=== PATIENT | female | born 1945 | race Caucasian/White ===

== ENCOUNTER 2023-09-02 10:16 | Day surgery (SDC) | payer MEDICARE ==
[2023-08-29 16:59] LABS: BASOPHILS % (AUTO) 0.4 % (0-1); EOSINOPHILS # (AUTO) 0.1 X10'3 (0-0.9); EOSINOPHILS % (AUTO) 1.4 % (0-6); HEMATOCRIT 37.8 % (35.0-45.0); HEMOGLOBIN 12.3 g/dl (12.0-16.0); LYMPHOCYTES # (AUTO) 0.9 X10'3 (1.1-4.8); LYMPHOCYTES % (AUTO) 10.1 % (21-51); MEAN CORPUSCULAR HGB CONC 32.7 g/dL (33.0-36.5); MEAN PLATELET VOLUME 7.3 FL (7.4-10.4); MONOCYTES # (AUTO) 0.6 X10'3 (0-0.9); MONOCYTES % (AUTO) 6.6 % (2-12); NEUTROPHILS # (AUTO) 7.2 X10'3 (1.8-7.7); NEUTROPHILS % (AUTO) 81.5 % (42-75); PLATELET COUNT 232 X10'3 (140-440); RED BLOOD COUNT 4.11 X10'6 (4.20-5.60); RED CELL DISTRIBUTION WIDTH 14.4 % (11.5-14.5); WHITE BLOOD COUNT 8.9 X10'3 (4.5-11.0)
[2023-08-29 17:08] LABS: APTT 27 SECONDS (22-32); PROTHROMBIN TIME 10.8 SECONDS (9.0-12.0)
[2023-08-29 17:12] LABS: ALBUMIN 3.6 G/DL (3.4-5.0); ANION GAP 8 (8-16); BLOOD UREA NITROGEN 12 MG/DL (7-18); BUN/CREATININE RATIO 16.2 (10.0-20.0); CALCIUM 8.5 MG/DL (8.5-10.1); CHLORIDE 106 MMOL/L (99-107); CHOL/HDL RATIO 2.6 (0.00-4.99); CHOLESTEROL 172 MG/DL (0-200); CREATININE 0.74 MG/DL (0.40-0.90); GLUCOSE 84 MG/DL (70-104); HDL CHOLESTEROL 65 MG/DL (35-60); LDL CHOLESTEROL 82 MG/DL (50-100); POTASSIUM 4.3 MMOL/L (3.5-5.1); SODIUM 141 MMOL/L (135-145); TRIGLYCERIDES 76 MG/DL (20-135); eGFR 76 ML/MIN
[~2023-09-02] VITALS: Ht 170.2 cm; Wt 71.1 kg
[2023-09-02] VITALS (11 sets, daily range): BP systolic 97–123; BP diastolic 40–77; PULSE 66–141; RESP 10–18; TEMP 97.7; O2SAT 92–97
[2023-09-02] MEDS ORDERED: TRAM50TA2 PO (10:43)
[2023-09-02] MEDS ORDERED: AMLO2.5T5 PO (10:43)
[2023-09-02] MEDS ORDERED: ROSU5TAB12 PO (10:43)
[2023-09-02] MEDS ORDERED: SILD20TA2 PO (10:43)
[2023-09-02] MEDS ORDERED: CHOL20002 PO (10:43)
[2023-09-02] MEDS ORDERED: MYCO500T5 PO (10:43)
[2023-09-02] MEDS ORDERED: PRE1T PO (10:43)
[2023-09-02] MEDS ORDERED: ESCI-8 PO (10:43)
[2023-09-02] MEDS ORDERED: GABA300T28 (10:43)
[2023-09-02] MEDS ORDERED: PANT20TA18 PO (10:43)
[2023-09-02] MEDS: normal saline 1,000 ML IV SCH (11:00)
[2023-09-02] MEDS ORDERED: verapamil 2.5 mg/ml inj IV ONE (11:22)
[2023-09-02] MEDS ORDERED: nitroGLYCERIN 500mcg/5mL D5W 5 ML IV ONE (11:23)
[2023-09-02] MEDS ORDERED: iohexol 350MG/ML 100ml bottle IV ONE (11:23)
[2023-09-02] MEDS ORDERED: fentaNYL/PF 50MCG/1 ML 2ML syringe ONE (11:23)
[2023-09-02] MEDS ORDERED: midazolam 1 mg/ML 2ml injection ONE (11:23)
[2023-09-02] MEDS ORDERED: heparin 1,000unit/ml 10ml vial 10 ML ONE (11:23)
[2023-09-02] MEDS ORDERED: LIDOcaine 1% (10mg/ml) 2ml vial ONE (11:53)
[2023-09-02] MEDS: LORazepam 0.5 MG tablet PO PRN (13:03)
[2023-09-02] MEDS: diphenhydrAMINE 25mg capsule PO PRN (13:03)
[2023-09-02] MEDS ORDERED: HYDROcodone/acetaminophen 5mg/325mg tablet PO PRN (13:30)
[2023-09-02] MEDS ORDERED: HYDROcodone/acetaminophen 10/325mg tab PO PRN (13:30)
[2023-09-03 06:26] LABS: ISTAT HGB MIX 11.6 g/dl (12.0-16.0); ISTAT Hct MIX 34 %PCV (35-45); ISTAT O2 SATURATION MIX VENOUS 65 % (60-80); ISTAT O2 SATURATION MIX VENOUS 90 % (60-80); ISTAT SOURCE BLNK
== END 2023-09-02 17:22 | disposition home or self-care (01) ==
LOC: SSTAY O 10:16
PROVIDERS: ATTEND Student in an Organized Health Care Education/Training Program
DX: I08.0 Rheumatic disorders of both mitral and aortic valves (principal); E78.5 Hyperlipidemia, unspecified; D64.9 Anemia, unspecified; I10 Essential (primary) hypertension; I73.00 Raynaud's syndrome without gangrene; K21.9 Gastro-esophageal reflux disease without esophagitis; Z87.01 Personal history of pneumonia (recurrent); Z79.899 Other long term (current) drug therapy; Z79.01 Long term (current) use of anticoagulants
CPT/HCPCS: 36415; 76937; 80048; 80061; 85025; 85610; 85730; 93005; 93456; 99152; J1644; J2250; J3010; J3490; J7030; Q9967; 82803; 85014; A6258; A6402; C1751; C1769; C1894

== ENCOUNTER 2023-11-11 10:31 | Outpatient (CLI) | payer MEDICARE ==
[~2023-11-11 10:31] MED LIST: AMLO2.5T5 PO; CHOL20002 PO; ESCI-8 PO; GABA300T28 PO; MYCO500T5 PO; PANT20TA18 PO; PRE1T PO; ROSU5TAB12 PO; SILD20TA14 PO; TRAM50TA2 PO
[2023-11-11 11:12] LABS: APTT 29 SECONDS (22-32); PROTHROMBIN TIME 10.9 SECONDS (9.0-12.0)
[2023-11-11 11:15] LABS: BASOPHILS % (AUTO) 0.2 % (0-1); EOSINOPHILS # (AUTO) 0.1 X10'3 (0-0.9); EOSINOPHILS % (AUTO) 1.2 % (0-6); HEMATOCRIT 35.8 % (35.0-45.0); HEMOGLOBIN 11.6 g/dl (12.0-16.0); LYMPHOCYTES # (AUTO) 0.7 X10'3 (1.1-4.8); LYMPHOCYTES % (AUTO) 6.1 % (21-51); MEAN CORPUSCULAR HEMOGLOBIN 29.6 PG (27.0-31.0); MEAN CORPUSCULAR HGB CONC 32.6 g/dL (33.0-36.5); MEAN CORPUSCULAR VOLUME 90.8 FL (78-98); MONOCYTES # (AUTO) 0.7 X10'3 (0-0.9); MONOCYTES % (AUTO) 5.8 % (2-12); NEUTROPHILS # (AUTO) 10.2 X10'3 (1.8-7.7); NEUTROPHILS % (AUTO) 86.7 % (42-75); PLATELET COUNT 229 X10'3 (140-440); RED BLOOD COUNT 3.94 X10'6 (4.20-5.60); WHITE BLOOD COUNT 11.8 X10'3 (4.5-11.0)
[2023-11-11 11:36] LABS: ALANINE AMINOTRANSFERASE 17 U/L (12-78); ALBUMIN/GLOBULIN RATIO 0.8 (1.1-1.5); ALKALINE PHOSPHATASE 67 IU/L (46-116); ANION GAP 7 (8-16); ASPARTATE AMINO TRANSFERASE 16 U/L (10-37); BILIRUBIN,TOTAL 0.3 MG/DL (0.1-1.0); BLOOD UREA NITROGEN 15 MG/DL (7-18); CALCIUM 8.6 MG/DL (8.5-10.1); CHLORIDE 105 MMOL/L (99-107); CREATININE 0.79 MG/DL (0.40-0.90); GLUCOSE 113 MG/DL (70-104); POTASSIUM 3.9 MMOL/L (3.5-5.1); SODIUM 140 MMOL/L (135-145); TOTAL PROTEIN 6.6 G/DL (6.4-8.2); eGFR 71 ML/MIN
[2023-11-11 11:44] LABS: PRO BRAIN NATRIURETIC PEPTIDE 1095 PG/ML (0-450)
[2023-11-11] MEDS ORDERED: IODIXANOL 320 MG/ML INFUS..BTL 100ML IV ONE (11:49)
[2023-11-18] MEDS ORDERED: MYCOPHENOLATE PO ×2 (12:14)
[2023-11-18] MEDS ORDERED: CALCIUM PO (12:18)
[2023-11-18] MEDS ORDERED: PREVAGEN PO (12:18)
[2023-11-18] MEDS ORDERED: VITAMIN E PO (12:18)
[2023-11-18] MEDS ORDERED: MULTI VITAMIN PO (12:18)
[2023-11-18] MEDS ORDERED: GINKO BILOBA PO (12:18)
[2023-11-18] MEDS ORDERED: COQ10 PO (12:18)
[2023-11-18] MEDS ORDERED: KRILL OIL PO (12:18)
[2023-11-18] MEDS ORDERED: EXPECTORANT PO (12:19)
[2023-11-20] MEDS ORDERED: GABA300C PO (10:56)
[2023-11-20] MEDS ORDERED: MYCO500T5 PO (10:57)
== END 2023-11-11 23:59 | disposition home or self-care (01) ==
LOC: RAD 10:31
PROVIDERS: ATTEND Internal Medicine Cardiovascular Disease
DX: Z01.818 Encounter for other preprocedural examination (principal); I34.81 Nonrheumatic mitral (valve) annulus calcification; I51.7 Cardiomegaly; K82.8 Other specified diseases of gallbladder; I70.0 Atherosclerosis of aorta; K57.30 Diverticulosis of large intestine without perforation or abscess without bleeding; I35.0 Nonrheumatic aortic (valve) stenosis; R06.02 Shortness of breath; I65.29 Occlusion and stenosis of unspecified carotid artery
CPT/HCPCS: 36415; 71046; 71275; 74174; 75572; 80053; 83880; 85025; 85610; 85730; J3490; Q9967

== ENCOUNTER 2023-11-13 14:39 | Outpatient (CLI) | payer MEDICARE ==
[~2023-11-13] VITALS: Ht 170.2 cm; Wt 70.5 kg
[2023-11-13 15:38] VITALS: BP 117/58; PULSE 70; RESP 22; TEMP 98.3; O2SAT 94
[2023-11-18] MEDS ORDERED: MYCOPHENOLATE PO ×2 (12:14)
[2023-11-18] MEDS ORDERED: KRILL OIL PO (12:18)
[2023-11-18] MEDS ORDERED: MULTI VITAMIN PO (12:18)
[2023-11-18] MEDS ORDERED: COQ10 PO (12:18)
[2023-11-18] MEDS ORDERED: PREVAGEN PO (12:18)
[2023-11-18] MEDS ORDERED: VITAMIN E PO (12:18)
[2023-11-18] MEDS ORDERED: GINKO BILOBA PO (12:18)
[2023-11-18] MEDS ORDERED: CALCIUM PO (12:18)
[2023-11-18] MEDS ORDERED: EXPECTORANT PO (12:19)
[2023-11-20] MEDS ORDERED: GABA300C PO (10:56)
[2023-11-20] MEDS ORDERED: MYCO500T5 PO (10:57)
== END 2023-11-13 23:59 | disposition home or self-care (01) ==
LOC: TAVR 14:39
PROVIDERS: ATTEND Internal Medicine Cardiovascular Disease
DX: I35.0 Nonrheumatic aortic (valve) stenosis (principal); R06.02 Shortness of breath; I65.29 Occlusion and stenosis of unspecified carotid artery
CPT/HCPCS: 71275; 74174; 75572

== ENCOUNTER 2023-11-21 05:38 | Inpatient (IN) | payer MEDICARE ==
[2023-11-18 12:23] LABS: BILIRUBIN,URINE NEGATIVE (Neg); CLARITY,URINE SLIGHTLY CLOUDY (Clear); COLOR,URINE YELLOW (Yellow); GLUCOSE, URINE NEGATIVE (Neg); KETONES,URINE NEGATIVE (Neg); LEUKOCYTE ESTERASE ,URINE SMALL (Neg); NITRITES, URINE NEGATIVE (Neg); OCCULT BLOOD,URINE NEGATIVE (Neg); PH,URINE 5.5 (4.8-8.0); PROTEIN,URINE NEGATIVE (Neg); UROBILINOGEN,URINE 0.2 E.U/dL (0.2-1.0)
[2023-11-18 12:29] LABS: BASOPHILS % (AUTO) 0.3 % (0-1); EOSINOPHILS # (AUTO) 0.2 X10'3 (0-0.9); EOSINOPHILS % (AUTO) 1.4 % (0-6); LYMPHOCYTES # (AUTO) 0.8 X10'3 (1.1-4.8); LYMPHOCYTES % (AUTO) 6.4 % (21-51); MEAN CORPUSCULAR HEMOGLOBIN 29.3 PG (27.0-31.0); MEAN CORPUSCULAR HGB CONC 32.3 g/dL (33.0-36.5); MEAN CORPUSCULAR VOLUME 90.6 FL (78-98); MEAN PLATELET VOLUME 6.4 FL (7.4-10.4); MONOCYTES # (AUTO) 0.6 X10'3 (0-0.9); MONOCYTES % (AUTO) 5.5 % (2-12); NEUTROPHILS # (AUTO) 10.1 X10'3 (1.8-7.7); NEUTROPHILS % (AUTO) 86.4 % (42-75); PRE OP HEMATOCRIT 36.2 % (35.0-45.0); PRE OP HEMOGLOBIN 11.7 g/dL (12.0-16.0); PRE OP PLATELET COUNT 266 X10'3 (140-440); PRE OP WHITE BLOOD COUNT 11.7 10'3 (4.8-10.8); RED BLOOD COUNT 3.99 X10'6 (4.20-5.60); RED CELL DISTRIBUTION WIDTH 14.8 % (11.5-14.5)
[2023-11-18 12:29] LABS: UA COLLECTION TYPE NON-SPECIFIED
[2023-11-18 12:30] LABS: SQUAMOUS EPITHELIAL CELL,UR FEW /LPF (FEW); TRANSITIONAL EPI CELLS,URINE FEW /HPF; WBC CLUMPS,URINE FEW /HPF (NEGATIVE)
[2023-11-18 12:31] LABS: BACTERIA,URINE FEW /HPF (Neg); RBC,URINE 0-2 /HPF (0-2)
[2023-11-18 12:39] LABS: PRE OP PROTIME 10.7 SECONDS (9.0-12.0)
[2023-11-18 12:47] LABS: ALBUMIN 3.4 G/DL (3.4-5.0); ALKALINE PHOSPHATASE 63 IU/L (46-116); BLOOD UREA NITROGEN 17 MG/DL (7-18); BUN/CREATININE RATIO 22.4 (10.0-20.0); CALCIUM 8.8 MG/DL (8.5-10.1); CHLORIDE 103 MMOL/L (99-107); CREATININE 0.76 MG/DL (0.40-0.90); PRE OP ALT 13 U/L (30-65); PRE OP ANION GAP 7 (8-16); PRE OP AST 10 U/L (10-37); PRE OP BILIRUB, TOTAL 0.3 MG/DL (0.0-1.0); PRE OP GLUCOSE 91 MG/DL (70-104); PRE OP POTASSIUM 4.6 MMOL/L (3.4-5.1); PRE OP SODIUM 138 MMOL/L (135-145); PRO BRAIN NATRIURETIC PEPTIDE 1078 PG/ML (0-450); TOTAL CARBON DIOXIDE 27.9 MMOL/L (24-32); TOTAL PROTEIN 6.8 G/DL (6.4-8.2); eGFR 74 ML/MIN
[2023-11-21] VITALS (33 sets, daily range): BP systolic 97–149; BP diastolic 57–72; PULSE 65–81; RESP 10–23; TEMP 97.2–98.4; O2SAT 91–100
[~2023-11-21] VITALS: Ht 271.8 cm; Wt 70.4 kg
[2023-11-21] MEDS: phenylephrine inj 50 MG in normal saline 250ml IV solN IV SCH (05:30)
[2023-11-21] MEDS: nitroPRUSSIDE (NIPRIDE) (200MCG/ML) 100ML Drip IV SCH (05:30)
[~2023-11-21 05:38] MED LIST changes: +CALCIUM PO; +COQ10 PO; +EXPECTORANT PO; +GABA300C PO; -GABA300T28 PO; +GINKO BILOBA PO; +KRILL OIL PO; +MULTI VITAMIN PO; +PREVAGEN PO; +VITAMIN E PO; +ondansetron/PF 4mg/2ml inj IV PRN
[2023-11-21] MEDS: famotidine 20mg tablet PO ONE (06:18)
[2023-11-21] MEDS: aspirin 325mg tablet PO ONE (06:20)
[2023-11-21] MEDS: vancomycin/NS 1 GM in NS 250 ML IV ONE (06:21)
[2023-11-21] MEDS: ringers solution, lacted 1,000 ML IV SCH (06:22)
[2023-11-21] MEDS: cefazolin 2gm/D5W 100mL 100 ML IV ONE (06:22)
[2023-11-21] MEDS ORDERED: iohexol 350MG/ML 100ml bottle IV ONE (06:47)
[2023-11-21] MEDS ORDERED: heparin 1,000 UNITS/NS 500ml 1,500 ML ONE (06:47)
[2023-11-21] MEDS ORDERED: desflurane 240ml liquid inh. IH ONE (06:55)
[2023-11-21] MEDS ORDERED: LIDOcaine 1% 30ml preserv. free vial ONE (06:59)
[2023-11-21] MEDS ORDERED: fentaNYL/PF 50MCG/1 ML 2ML syringe ONE (07:07)
[2023-11-21] MEDS ORDERED: midazolam 1 mg/ML 2ml injection ONE (07:08)
[2023-11-21] MEDS ORDERED: LIDOcaine 2% (20mg/ml) 5ml vial ONE (07:11)
[2023-11-21] MEDS ORDERED: propofol inj 20 ML IV ONE (07:11)
[2023-11-21] MEDS ORDERED: rocuronium 10mg/ml inj IV ONE (07:25)
[2023-11-21] MEDS ORDERED: heparin 1,000unit/ml 10ml vial 10 ML ONE (07:25)
[2023-11-21] MEDS: protamine sulfate 10mg/ml inj. ONE (07:53)
[2023-11-21] MEDS ORDERED: ondansetron/PF 4mg/2ml inj ONE (08:13)
[2023-11-21] MEDS ORDERED: potassium Cl 40MEQ/270ML bag 250 ML IV PRN (08:20)
[2023-11-21] MEDS ORDERED: labetalol 20mg/4ml (5mg/ml) syringe IV PRN (08:20)
[2023-11-21] MEDS ORDERED: potassium Cl 40MEQ/1/2NS 520ml 520 ML IV PRN (08:20)
[2023-11-21] MEDS ORDERED: pantoprazole 40mg Tablet.DR PO PRN (08:20)
[2023-11-21] MEDS ORDERED: HYDROcodone/acetaminophen 5mg/325mg tablet PO PRN (08:20)
[2023-11-21] MEDS ORDERED: potassium Cl 20mEq/100mL bag 100 ML IV PRN (08:20)
[2023-11-21] MEDS ORDERED: proCHLORperazine 10 MG/2 ml inj IV PRN (08:20)
[2023-11-21] MEDS ORDERED: acetaminophen 325mg tablet PO PRN (08:20)
[2023-11-21] MEDS ORDERED: hydrALAZINE 20mg/ml inj. IV PRN (08:20)
[2023-11-21] MEDS ORDERED: diphenhydrAMINE 25mg capsule PO PRN (08:20)
[2023-11-21] MEDS ORDERED: ondansetron/PF 4mg/2ml inj IV PRN (08:20)
[2023-11-21] MEDS ORDERED: potassium Cl 20 mEq SR tablet PO PRN (08:20)
[2023-11-21] MEDS ORDERED: magnesium 4gm in 100ml NS 100 ML IV PRN (08:20)
[2023-11-21] MEDS ORDERED: potassium CL 10mEq/100ml bag 100 ML IV PRN (08:20)
[2023-11-21] MEDS ORDERED: magnesium 2GM in 50ml NS 50 ML IV PRN (08:20)
[2023-11-21] MEDS ORDERED: docusate sod 100mg capsule PO PRN (08:20)
[2023-11-21] MEDS: normal saline 1000ml 1,000 ML IV SCH (10:45)
[2023-11-21] MEDS ORDERED: traMADol 50MG tablet PO PRN (12:05)
[2023-11-21] MEDS: sildenafil citrate 20mg tablet PO SCH (15:27)
[2023-11-21] MEDS: traMADol 50MG tablet PO PRN (15:28)
[2023-11-21] MEDS: sod chloride 0.9% 10ml flush syringe IV SCH (16:10)
[2023-11-21] MEDS: vancomycin/NS 1 GM ADD-VANTAGE 250 ML IV SCH (19:22)
[2023-11-21] MEDS: mycophenolate mofetil 250mg capsule PO SCH (20:48)
[2023-11-21] MEDS: gabapentin 300mg capsule PO SCH (20:48)
[2023-11-21] MEDS: atorvastatin 20mg tablet PO SCH (20:49)
[2023-11-21] MEDS: amLODIPine 5mg tablet PO SCH (20:49)
[2023-11-21] MEDS: ESCITALOPRAM 10 mg tablet 10 MG TABLET PO SCH (20:49)
[2023-11-21] MEDS ORDERED: non-formulary drug (Pantoprazole Sodium (Protonix) 2 TAB) PO SCH (21:00)
[2023-11-21] MEDS: ALPRAZolam 0.25mg tablet PO PRN (21:45)
[2023-11-22 02:00] VITALS: BP 95/58; PULSE 69; RESP 16; TEMP 97.8; O2SAT 96
[2023-11-22 06:00] VITALS: BP 110/62; PULSE 68; RESP 15; TEMP 98.9; O2SAT 99
[2023-11-22 07:13] LABS: BASOPHILS % (AUTO) 0.1 % (0-1); EOSINOPHILS % (AUTO) 0.2 % (0-6); HEMATOCRIT 31.6 % (35.0-45.0); HEMOGLOBIN 10.4 g/dl (12.0-16.0); LYMPHOCYTES # (AUTO) 0.9 X10'3 (1.1-4.8); LYMPHOCYTES % (AUTO) 6.3 % (21-51); MEAN CORPUSCULAR HEMOGLOBIN 30.1 PG (27.0-31.0); MEAN CORPUSCULAR VOLUME 91.1 FL (78-98); MONOCYTES % (AUTO) 6.8 % (2-12); NEUTROPHILS # (AUTO) 12.3 X10'3 (1.8-7.7); NEUTROPHILS % (AUTO) 86.6 % (42-75); PLATELET COUNT 226 X10'3 (140-440); RED BLOOD COUNT 3.47 X10'6 (4.20-5.60); RED CELL DISTRIBUTION WIDTH 14.9 % (11.5-14.5); WHITE BLOOD COUNT 14.2 X10'3 (4.5-11.0)
[2023-11-22] MEDS: predniSONE 1 mg tablet PO SCH (07:38)
[2023-11-22] MEDS: aspirin 81mg tab.chew PO SCH (07:38)
[2023-11-22] MEDS: mycophenolate mofetil 250mg capsule PO SCH (07:39)
[2023-11-22 07:55] LABS: ALANINE AMINOTRANSFERASE 24 U/L (12-78); ALBUMIN 2.9 G/DL (3.4-5.0); ALBUMIN/GLOBULIN RATIO 0.9 (1.1-1.5); ALKALINE PHOSPHATASE 67 IU/L (46-116); ANION GAP 6 (8-16); ASPARTATE AMINO TRANSFERASE 21 U/L (10-37); BILIRUBIN,TOTAL 0.4 MG/DL (0.1-1.0); BLOOD UREA NITROGEN 19 MG/DL (7-18); BUN/CREATININE RATIO 27.5 (10.0-20.0); CALCIUM 8.6 MG/DL (8.5-10.1); CHLORIDE 104 MMOL/L (99-107); CREATININE 0.69 MG/DL (0.40-0.90); GLUCOSE 91 MG/DL (70-104); MAGNESIUM 1.9 MG/DL (1.5-2.4); POTASSIUM 3.9 MMOL/L (3.5-5.1); PRO BRAIN NATRIURETIC PEPTIDE 1303 PG/ML (0-450); SODIUM 139 MMOL/L (135-145); TOTAL CARBON DIOXIDE 28.6 MMOL/L (24-32); TOTAL PROTEIN 6.1 G/DL (6.4-8.2); eCRCL 76 ML/MIN; eGFR 82 ML/MIN
[2023-11-22 11:00] VITALS: BP 90/42; PULSE 80; RESP 10; TEMP 98.6; O2SAT 96
[2023-11-22] MEDS ORDERED: cholecalciferol (vitamin D3) 1,000 unit (25mcg) tablet PO SCH (12:00)
== END 2023-11-22 12:35 | disposition home or self-care (01) | DRG 266 ==
LOC: PAS IN 05:38 → PCU 3S 10:42
PROVIDERS: ADMIT Internal Medicine Cardiovascular Disease; ATTEND Internal Medicine Cardiovascular Disease
PROC: 027F3ZZ Dilation of Aortic Valve, Percutaneous Approach (ICD-10-PCS; 2023-11-21)
PROC: 03HY32Z Insertion of Monitoring Device into Upper Artery, Percutaneous Approach (ICD-10-PCS; 2023-11-21)
PROC: B41D1ZZ Fluoroscopy of Aorta and Bilateral Lower Extremity Arteries using Low Osmolar Contrast (ICD-10-PCS; 2023-11-21)
PROC: 02RF38Z Replacement of Aortic Valve with Zooplastic Tissue, Percutaneous Approach (ICD-10-PCS; principal; 2023-11-21 06:55)
DX: I35.0 Nonrheumatic aortic (valve) stenosis (principal); Z00.6 Encounter for examination for normal comparison and control in clinical research program; I50.33 Acute on chronic diastolic (congestive) heart failure; I73.00 Raynaud's syndrome without gangrene; M34.9 Systemic sclerosis, unspecified; Z88.0 Allergy status to penicillin
CPT/HCPCS: 33361; 36415; 71045; 76937; 80053; 81001; 82948; 83735; 83880; 85025; 85347; 85610; 85730; 86885; 86900; 86901; 86920; 87081; 87088; 93005; 93308; A4615; A4618; A6258; A6449; C1756; C1760; C1769; C1894; G0378; J0690; J1100; J1644; J2250; J2371; J2405; J2704; J2710; J2720; J3010; J3370; J3490; J7030; J7040; J7050; J7120; J7512; J7517; Q9967